=== PATIENT | female | born 1970 | race Two or more races ===

== ENCOUNTER 2016-08-21 08:04 | Outpatient (CLI) | payer MEDICAID ==
[2016-08-21 08:58] LABS: GTT GLUCOSE,FASTING 110 mg/dL (70-100)
== END 2016-08-21 08:05 | disposition home or self-care (01) ==
LOC: LAB 08:04
PROVIDERS: ATTEND Obstetrics & Gynecology
DX: Z86.32 Personal history of gestational diabetes (principal)
CPT/HCPCS: 36415; 82951

== ENCOUNTER 2016-11-11 06:14 | Day surgery (SDC) | payer MEDICAID ==
[2016-11-11 06:37] LABS: HCG UR QUAL NEGATIVE
[2016-11-11] MEDS ORDERED: ceFAZolin 2 GM/50 ML 50 ML IV ONE (06:38)
[2016-11-11] MEDS ORDERED: LACTATED RINGERS 1,000 ML IV ONE ×2 (06:48→09:03)
[2016-11-11] MEDS ORDERED: BUPIVACAINE 0.5% PF 30 ML VIAL SUBQ ONE ×2 (07:37→08:25)
[2016-11-11] MEDS ORDERED: LIDOCAINE-MPF 2% 5 ML VIAL IM ONE (08:15)
[2016-11-11] MEDS ORDERED: ONDANSETRON 4 MG/2 ML VIAL IVP ONE (08:15)
[2016-11-11] MEDS ORDERED: MIDAZOLAM 2 MG/2 ML VIAL IVP ONE (08:15)
[2016-11-11] MEDS ORDERED: ACETAMINOPHEN 1,000 MG/100 ML VIAL IV ONE (08:15)
[2016-11-11] MEDS ORDERED: ROCURONIUM 50 MG/5 ML VIAL IVP ONE (08:15)
[2016-11-11] MEDS ORDERED: DEXAMETHASONE 4 MG/ML VIAL IVP ONE (08:15)
[2016-11-11] MEDS ORDERED: fentaNYL 100 MCG/2 ML VIAL IVP ONE (08:15)
[2016-11-11] MEDS ORDERED: GLYCOPYRROLATE 1 MG/5 ML VIAL IVP ONE (08:15)
[2016-11-11] MEDS ORDERED: KETOROLAC 30 MG/ML VIAL IVP ONE (08:15)
[2016-11-11] MEDS ORDERED: PROPOFOL 200 MG/20 ML VIAL IVP ONE (08:15)
[2016-11-11] MEDS ORDERED: NEOSTIGMINE 1 MG/1 ML 10 ML MDV IVP ONE (08:15)
[2016-11-11] MEDS: fentaNYL 100 MCG/2 ML VIAL ONE ×3 (08:48→09:08)
[2016-11-11] MEDS: HYDROmorphone 1 MG/ML SYRINGE ONE ×2 (09:13→09:20)
--- NOTE | 2016-11-11 09:24 | OPERATIVE REPORT ---
DATE OF SURGERY: 11/11/2016 00:00:00 TIME: 0830. PREOPERATIVE DIAGNOSIS: Umbilical hernia. NAME OF PROCEDURE: Umbilical herniorrhaphy with mesh (Covidien Parietex, lot #[id number], reference #PC [id number], use by date 05/28/2021). POSTOPERATIVE DIAGNOSIS: Umbilical hernia. SURGEON: Mahad Nation MD. ANESTHESIA: Dr. Deluca (general endotracheal), plus 30 mL of 0.5% Marcaine. COMPLICATIONS: None. ESTIMATED BLOOD LOSS: Less than 10 mL. FLUIDS: 900 mL crystalloid. SPECIMEN REMOVED AND CULTURES: None. DETAILS OF PROCEDURE: After informed consent was obtained detailing the risks of infection, bleeding with all of its risks including transfusion and , the patient was brought to the operative suite and placed supine on the operating table. The patient received preoperative antibiotics for prophyla xis against surgical infection. The patient had TEDs and Venodynes placed for prophylaxis against alicia p venous thrombosis. The patient was intubated by Almas Deluca, and Almas Deluca provided anesthesi a care for the entirety of the case. The patient was then prepped and draped in the usual standard ma nner. A time-in was then done that confirmed the patient's identity via her name, medical record numb er, date of , and we discussed the proposed operation, allergies, medications, and that we had t personnel and equipment required to perform the proposed operation. With the consent of everyone i n the room, the operation was allowed to proceed. After anesthetizing the skin using 10 mL of 0.5% Marcaine, a curvilinear incision was made infraumbil ically. Dissection to the hernia sac was completed using Bovie electrocautery. The hernia sac was enc ircled using a Ange. The umbilical stalk was dissected free from the hernia sac using Bovie electroc autery. This hernia sac was resected. The fascia was then defined using Bovie electrocautery. A 8.8 c m piece of Covidien Parietex mesh was obtained, moistened, and placed into the opening. This was then secured to the fascial opening using interrupted 2-0 PDS sutures. This was done circumferentially. T fascia was then closed over the mesh using a 2-0 PDS in a [id number] fashion. In this manner, the hernia was fixed not only with mesh, but also by closing the fascia over it. Meticulous hemostas is was noted. The skin was then sewn down to the fascia to give the patient an "innie" with 3-0 Vicry l suture. The fascia at this point, as well as the skin was injected using 0.5% Marcaine for long-ter m anesthetic control. The skin was then approximated using 4-0 Monocryl in a running subcuticular fas hion. The skin was cleaned of its prep. Mastisol and Steri-Strips were applied. The patient was extub ated and taken to recovery room in good and stable condition having tolerated this procedure well. JOB #: [id number] EXT JOB #:[id number]
[2016-11-11 11:18] VITALS: BP 108/65
== END 2016-11-11 06:15 | disposition home or self-care (01) ==
LOC: SDS 06:14
PROVIDERS: ATTEND Surgery
PROC: 0WUF0JZ Supplement Abdominal Wall with Synthetic Substitute, Open Approach (ICD-10-PCS; principal; 2016-11-11 07:30)
DX: K42.9 Umbilical hernia without obstruction or gangrene (principal)
CPT/HCPCS: 49585; 81025; C1781; J0131; J0690; J1170; J7120

== ENCOUNTER 2016-12-06 06:07 | Outpatient (CLI) | payer MEDICAID ==
[2016-12-06 06:48] LABS: CREATININE 0.6 mg/dL (0.4-1.0)
[2016-12-06] MEDS ORDERED: IOPAMIDOL-300 50 ML VIAL PO ONE (08:10)
[2016-12-06] MEDS ORDERED: IOPAMIDOL-300 100 ML VIAL IVP ONE (08:10)
--- NOTE | 2016-12-06 10:54 | CT Report ---
CT ABDOMEN AND PELVIS WITH CONTRAST: 12/06/2016 CLINICAL INDICATION: Abdominal distention. TECHNIQUE: Axial CT images of the abdomen and pelvis were obtained with 100 mL Isovue-300 intravenou sly as well as oral contrast. No previous CT is available for comparison. In accordance with CT protocol optimization, one or more of the following dose reduction techniques w ere utilized for this exam: automated exposure control, adjustment of mA and/or KV based on patient size, or use of iterative reconstructive technique. FINDINGS: Limited evaluation of the lung bases is unremarkable. Abdomen: The liver, spleen, pancreas, kidneys, and adrenal glands are unremarkable. Cholelithiasis is noted. No biliary dilatation is seen. No bowel dilatation, free gas, or free fluid is present. No abdominal adenopathy is seen. Pelvis: Postoperative changes are seen in the anterior abdominal wall. No pelvic adenopathy or free fluid is present. Osseous structures demonstrate mild degenerative changes. IMPRESSION: POSTOPERATIVE CHANGES IN THE ANTERIOR ABDOMINAL WALL. CHOLELITHIASIS. JOB #: [id number] EXT JOB #:[id number]
== END 2016-12-06 06:08 | disposition home or self-care (01) ==
LOC: DI 06:07
PROVIDERS: ATTEND Surgery
DX: K80.20 Calculus of gallbladder without cholecystitis without obstruction (principal); Z98.890 Other specified postprocedural states
CPT/HCPCS: 36415; 74177; 82565; Q9967

== ENCOUNTER 2018-07-24 04:55 | Emergency (ER) | payer MEDICAID ==
--- NOTE | 2018-07-24 05:12 | ED Physician Documentation ---
PD HPI ABD PAIN - Stated complaint Stated Complaint: ABD PX - Chief complaint Chief Complaint: Abd Pain - History obtained from History obtained from: Patient - History of Present Illness Timing - onset: Enter time (02:00), Today Timing - details: Abrupt onset, Waxing and waning Quality: Pain Location: RUQ, Epigastric Radiation: Other (no radiation) Improved by: Other (no apparent ameliorating factors) Worsened by: Other (no apparent exacerbating factors) Associated symptoms: Nausea, Vomiting. No: Fever Similar symptoms before: No diagnosis, Other (few previous similar episodes, self-limited and thus did not seek medical attention until tonight) Recently seen: Not recently seen Review of Systems Constitutional: reports: Reviewed and negative Cardiac: reports: Reviewed and negative Respiratory: reports: Reviewed and negative GI: reports: Abdominal Pain, Nausea, Vomiting : denies: Dysuria, Frequency Musculoskeletal: denies: Back pain PD PAST MEDICAL HISTORY - Past Medical History Cardiovascular: None Respiratory: None Endocrine/Autoimmune: None GI: None : None HEENT: None Psych: None Derm: None - Past Surgical History Past Surgical History: No - Present Medications Home Medications: Ambulatory Orders Medication Instructions Recorded Confirmed Hydrocodone/Acetaminophen 1 - 2 each PO Q6H PRN #14 tablet 07/24/18 [Hydrocodon-Acetaminophen 5-325] - Allergies Allergies/Adverse Reactions: Allergies Allergy/AdvReac Type Severity Reaction Status Date / Time No Known Drug Allergies Allergy Verified 03/22/16 01:47 - Social History Does the pt smoke?: No Smoking Status: Never smoker Does the pt drink ETOH?: No Does the pt have substance abuse?: No - Immunizations Immunizations are current?: No Immunizations: TDAP >10years/unknown - POLST Patient has POLST: No PD ED PE NORMAL - Vitals Vital signs reviewed: Yes - General General: Alert and oriented X 3, No acute distress, Well developed/nourished - Cardiac Cardiac: RRR, No murmur - Respiratory Respiratory: No respiratory distress, Clear bilaterally - Abdomen Abdomen: Normal bowel sounds, Soft, Non tender, Non distended - Back Back: No CVA TTP - Derm Derm: No rash Results - Vitals Vitals: Vital Signs - 24 hr 07/24/18 07/24/18 04:59 06:12 Temperature 35.7 C L Heart Rate 74 74 Respiratory 18 16 Rate Blood Pressure 116/44 L 108/73 O2 Saturation 100 99 Oxygen O2 Source Room air - Labs Labs: Laboratory Tests 07/24/18 07/24/18 07/24/18 05:00 05:10 05:10 WBC 11.2 H RBC 4.28 Hgb 13.4 Hct 39.2 MCV 91.6 MCH 31.2 H MCHC 34.1 RDW 12.8 Plt Count 316 MPV 7.9 Neut # (Auto) 9.1 H Lymph # (Auto) 1.4 L [place] # (Auto) 0.5 Eos # (Auto) 0.2 Baso # (Auto) 0.1 Absolute Nucleated RBC 0.00 Nucleated RBC % 0.0 Sodium 137 Potassium 4.1 Chloride 99 L Carbon Dioxide 27 Anion Gap 11.0 BUN 17 Creatinine 0.7 Estimated GFR (MDRD) 90 Glucose 187 H Calcium 9.9 Total Bilirubin 0.8 AST 27 ALT 29 Alkaline Phosphatase 103 Total Protein 7.7 Albumin 4.2 Globulin 3.5 Albumin/Globulin Ratio 1.2 Lipase 44 Urine Color YELLOW Urine Clarity CLEAR Urine pH 5.5 Ur Specific [place] >=1.030 H Urine Protein TRACE Urine Glucose (UA) NEGATIVE Urine Ketones NEGATIVE Urine Occult Blood NEGATIVE Urine Nitrite NEGATIVE Urine Bilirubin NEGATIVE Urine Urobilinogen 0.2 (NORMAL) Ur Leukocyte Esterase NEGATIVE Ur Microscopic Review NOT INDICATED Urine Culture Comments NOT INDICATED - Rads (name of study) RUQ US Radiology: Prelim report reviewed, See rad report PD MEDICAL DECISION MAKING - ED course Complexity details: reviewed results, re-evaluated patient, considered differential, d/w patient Departure - Departure Disposition: 01 Home, Self Care Clinical Impression: Biliary colic Condition: Good Instructions: ED Gallstone W Biliary Colic Follow-Up: Mil Barth MD [Provider Admit Priv/Credential] - Prescriptions: Hydrocodone/Acetaminophen [Hydrocodon-Acetaminophen 5-325] 1 - 2 each PO Q6H PRN #14 tablet PRN Reason: pain Discharge Date/Time: 07/24/18 07:59
[2018-07-24] MEDS ORDERED: KETOROLAC 30 MG/ML VIAL IVP STA (05:44)
[2018-07-24 05:51] LABS: BILIRUBIN,URINE NEGATIVE (NEGATIVE); GLUCOSE, URINE (UA) NEGATIVE (NEGATIVE); KETONES,URINE (UA) NEGATIVE (NEGATIVE); LEUKOCYTE ESTERASE, URINE NEGATIVE (NEGATIVE); NITRITE,URINE NEGATIVE (NEGATIVE); OCCULT BLOOD,URINE NEGATIVE (NEGATIVE); PH,URINE 5.5 PH (5.0-7.5); PROTEIN,URINE TRACE mg/dL (NEGATIVE); UROBILINOGEN,URINE 0.2 (NORMAL) E.U./dL (NORMAL)
[2018-07-24 05:51] LABS: BASOPHILS # (AUTO) 0.1 10^3/uL (0.0-0.1); BASOPHILS % (AUTO) 0.7 %; EOSINOPHILS # (AUTO) 0.2 10^3/uL (0.0-0.7); EOSINOPHILS % (AUTO) 1.5 %; HGB - HEMOGLOBIN 13.4 g/dL (12.0-16.0); LYMPHOCYTES # (AUTO) 1.4 10^3/uL (1.5-3.5); LYMPHOCYTES % (AUTO) 12.8 %; MEAN CORPUSCULAR HEMOGLOBIN 31.2 pg (27.0-31.0); MEAN CORPUSCULAR HGB CONC 34.1 g/dL (32.0-36.0); MEAN CORPUSCULAR VOLUME 91.6 fL (81.0-99.0); MEAN PLATELET VOLUME 7.9 fL (7.9-10.8); MONOCYTES # (AUTO) 0.5 10^3/uL (0.0-1.0); MONOCYTES % (AUTO) 4.1 %; NEUTROPHILS # (AUTO) 9.1 10^3/uL (1.5-6.6); NEUTROPHILS % (AUTO) 80.9 %; PLT - PLATELET COUNT 316 10^3/uL (130-450); RED BLOOD COUNT 4.28 10^6/uL (4.20-5.40); RED CELL DISTRIBUTION WIDTH 12.8 % (12.0-15.0); WHITE BLOOD COUNT 11.2 x10^3/uL (4.8-10.8)
[2018-07-24 05:53] LABS: CLARITY,URINE CLEAR (CLEAR)
[2018-07-24 06:05] LABS: ALBUMIN 4.2 g/dL (3.2-5.5); ALBUMIN/GLOBULIN RATIO 1.2 (1.0-2.2); BILIRUBIN,TOTAL 0.8 mg/dL (0.2-1.0); CALCIUM 9.9 mg/dL (8.5-10.3); CREATININE 0.7 mg/dL (0.4-1.0); TOTAL PROTEIN 7.7 g/dL (6.7-8.2)
--- NOTE | 2018-07-24 07:01 | Ultrasound Report ---
Reason: abd. pain Procedure Date: 07/24/2018 Accession Number: [id number] / [id number] Procedure: US - Abdomen Limited CPT Code: FULL RESULT: EXAM: ABDOMEN ULTRASOUND LIMITED, RUQ EXAM DATE: 07/24/2018 06:43 AM. CLINICAL HISTORY: Abd. pain. COMPARISON: ABDOMEN/PELVIS W/ 12/06/2016 7:54 AM. TECHNIQUE: Real-time scanning was performed with static images obtained. FINDINGS: Liver: Mild increased echogenicity. No suspicious focal lesion. Liver measures 12.8 cm in length. Portal Vein: Patent with hepatopetal flow. Gallbladder: Mobile gallstones. Mild gallbladder distention. Absent Cosby's sign. No pericholecystic fluid. No wall thickening. Biliary System: CBD measures 5.0 mm. No intrahepatic or extrahepatic ductal dilatation. Pancreas: Normal appearing head and body. Other portions are obscured by overlying structures. Right Kidney: Transient right-sided pelviectasis. Right kidney measures 10.8 cm in length. Other: None. IMPRESSION: 1. Gallstones without cholecystitis or biliary dilation. 2. There is mild hepatic steatosis. RADIA
[2018-07-24 07:58] VITALS: BP 108/73
== END 2018-07-24 07:59 | disposition home or self-care (01) ==
LOC: ED 04:55
DX: K80.20 Calculus of gallbladder without cholecystitis without obstruction (principal)
CPT/HCPCS: 36415; 76705; 80053; 81001; 81003; 83690; 85025; 87086; 96374; 99283

== ENCOUNTER 2020-04-21 22:52 | Outpatient (CLI) | payer MEDICAID ==
[2020-04-21 23:23] LABS: HGB - HEMOGLOBIN 12.2 g/dL (12.0-16.0); MEAN CORPUSCULAR HEMOGLOBIN 29.4 pg (27.0-31.0); MEAN CORPUSCULAR HGB CONC 31.6 g/dL (32.0-36.0); MEAN PLATELET VOLUME 8.5 fL (7.9-10.8); RED BLOOD COUNT 4.15 10^6/uL (4.20-5.40); WHITE BLOOD COUNT 7.9 x10^3/uL (4.8-10.8)
[2020-04-21 23:45] LABS: % IRON SATURATION 10 % (20-50); ALBUMIN 4.1 g/dL (3.2-5.5); ALBUMIN/GLOBULIN RATIO 1.2 (1.0-2.2); ALKALINE PHOSPHATASE 96 IU/L (42-121); ALT ALANINE AMINOTRANSFERASE 19 IU/L (10-60); AST ASPARTATE AMINOTRANSFERASE 16 IU/L (10-42); BILIRUBIN,TOTAL 0.5 mg/dL (0.2-1.0); BUN - BLOOD UREA NITROGEN 17 mg/dL (6-20); CALCIUM 8.9 mg/dL (8.5-10.3); CARBON DIOXIDE - CO2 26 mmol/L (21-32); CHLORIDE 102 mmol/L (101-111); CHOL/HDL RATIO 5.2 (<4.4); CHOLESTEROL 264 mg/dL; CREATININE 0.7 mg/dL (0.4-1.0); GLUCOSE 116 mg/dL (70-100); HDL CHOLESTEROL 51 mg/dL; IRON 51 ug/dL (28-170); LDL CHOLESTEROL,CALCULATED 157 mg/dL; LDL/HDL RATIO 3.1 (<4.4); TOTAL IRON BINDING CAPACITY 525 ug/dL (250-450); TOTAL PROTEIN 7.5 g/dL (6.7-8.2); TRANSFERRIN 375 mg/dL (192-382); VLDL CHOLESTEROL 56 mg/dL
[2020-04-22 00:23] LABS: FOLLICLE STIMULATING HORMONE 25.15 mIU/mL
[2020-04-22 00:25] LABS: FREE T4 (FREE THYROXINE) 0.87 ng/dL (0.58-1.64)
[2020-04-22 07:16] LABS: HEMOGLOBIN A1c% 6.3 % (4.27-6.07)
[2020-04-24 12:52] LABS: HIV AG/AB 4TH GEN NON-REACTIVE (NON-REACTIVE)
== END 2020-04-21 22:53 | disposition home or self-care (01) ==
LOC: LAB 22:52
PROVIDERS: ATTEND Obstetrics & Gynecology
DX: L64.9 Androgenic alopecia, unspecified (principal); Z13.1 Encounter for screening for diabetes mellitus; Z13.220 Encounter for screening for lipoid disorders; Z13.21 Encounter for screening for nutritional disorder; N95.1 Menopausal and female climacteric states; Z13.29 Encounter for screening for other suspected endocrine disorder; Z11.3 Encounter for screening for infections with a predominantly sexual mode of transmission
CPT/HCPCS: 36415; 80053; 80061; 81599; 82306; 83001; 83036; 83540; 83721; 84439; 84443; 84466; 85027; 86592; 87350; 87389

== ENCOUNTER 2020-04-27 10:08 | Outpatient (CLI) | payer MEDICAID ==
--- NOTE | 2020-04-28 09:53 | Mammography Report ---
BILATERAL DIGITAL SCREENING MAMMOGRAM 3D/2D: 04/27/2020 CLINICAL: Baseline exam. Routine screening. No prior exams were available for comparison. The tissue of both breasts is heterogeneously dense. T his may lower the sensitivity of mammography. No significant masses, calcifications, or other findings are seen in either breast. IMPRESSION: NEGATIVE There is no mammographic evidence of malignancy. A 1 year screening mammogram is recommended. This exam was interpreted at Station ID: [id number]. NOTE: For mammograms, a report in lay terms will be sent to the patient. Approximately 15% of breast malignancies will not be visualized mammographically. In the management of a palpable breast mass, a negative mammogram must not discourage biopsy of a clinically suspicious lesion. Electronically Signed By: Juan Luis brown/obdulia:04/27/2020 13:14:03 ACR BI-RADS Category 1: Negative 3341F PARENCHYMAL PATTERN: (D) - The breast(s) demonstrate(s) heterogeneously dense fibroglandular alicia mitchell. BI-RADS CATEGORY: (1) - 1 RECOMMENDATION: (ANNUAL) - Recommend routine annual screening mammography. [id number] 1 year screening LATERALITY: (B)
== END 2020-04-27 10:09 | disposition home or self-care (01) ==
LOC: DI.N 10:08
PROVIDERS: ATTEND Obstetrics & Gynecology
DX: Z12.31 Encounter for screening mammogram for malignant neoplasm of breast (principal)

== ENCOUNTER 2020-06-02 11:14 | Day surgery (SDC) | payer MEDICAID ==
[2020-06-02] MEDS ORDERED: LACTATED RINGERS 1,000 ML IV ONE ×2 (11:28→13:05)
[2020-06-02 11:47] LABS: HCG UR QUAL NEGATIVE
--- NOTE | 2020-06-02 12:14 | ANESTHESIA ---
Pre-Anesthesia VS, & Labs - Diagnosis screening - Procedure colonoscopy Vital Signs: Temp Pulse Resp BP Pulse Ox 36.8 C 82 16 129/79 96 06/02/20 11:32 06/02/20 11:32 06/02/20 11:32 06/02/20 11:32 06/02/20 11:32 Height: 4 ft 10 in Weight (kg): 71 kg Body Mass Index: 32.7 BMI Classification: Obese - NPO >8 hours - Is Patient ?: No Home Medications and Allergies Allergies/Adverse Reactions: Allergies Allergy/AdvReac Type Severity Reaction Status Date / Time No Known Drug Allergies Allergy Verified 03/22/16 01:47 Anes History & Medical History - Anesthetic History Anesthesia Complications: reports: No previous complications - Medical History Cardiovascular: reports: None Pulmonary: reports: None Gastrointestinal: reports: None Urinary: reports: None Musculoskeletal: reports: None Endocrine/Autoimmune: reports: None Skin: reports: None Smoking Status: Never smoker - Surgical History General: reports: Other Exam General: Alert Dental: WNL Mallampati classification: II Respiratory: Lungs clear Cardiovascular: Regular rate Plan Anesthesia Type: Total IV Consent for Procedure(s) Verified and Reviewed: Yes Code Status: Attempt Resuscitation ASA classification: 2-Mild systemic disease Is this case an emergency?: No
[2020-06-02] MEDS ORDERED: PROPOFOL 200 MG/20 ML VIAL IVP ONE ×3 (12:29→13:09)
[2020-06-02] MEDS ORDERED: LIDOCAINE-MPF 2% 5 ML VIAL ONE (12:29)
[2020-06-02] MEDS ORDERED: GLYCOPYRROLATE 1 MG/5 ML VIAL ONE (12:44)
[2020-06-02 13:30] VITALS: BP 98/83
--- NOTE | 2020-06-02 13:32 | ANESTHESIA POST OP EVALUATION ---
Anesthesia Post Eval - Post Anesthesia Eval Vitals: Last Vital Signs Temp 36.3 C L 06/02/20 13:29 Pulse 78 06/02/20 13:29 Resp 14 06/02/20 13:29 BP 98/83 H 06/02/20 13:29 Pulse Ox 100 06/02/20 13:29 CV Function Including HR & BP: positive: Stable Pain Control: positive: Satisfactory Nausea & Vomiting: positive: Negative Mental Status: positive: Baseline Respiratory Status: Airway Patent Hydration Status: Satisfactory Anesthesia Complications: positive: None
== END 2020-06-02 11:15 | disposition home or self-care (01) ==
LOC: SDS 11:14
PROVIDERS: ATTEND Surgery
DX: Z12.11 Encounter for screening for malignant neoplasm of colon (principal); K57.30 Diverticulosis of large intestine without perforation or abscess without bleeding; E66.9 Obesity, unspecified; Z68.32 Body mass index [BMI] 32.0-32.9, adult; R73.03 Prediabetes
CPT/HCPCS: 45378; 81025; J7120

== ENCOUNTER 2021-03-05 08:15 | Outpatient (CLI) | payer MEDICAID ==
[2021-03-05 09:01] LABS: GTT GLUCOSE,FASTING 134 mg/dL (70-100)
[2021-03-05 09:24] LABS: THYROID STIMULATING HORMONE 7.17 uIU/mL (0.34-5.60)
[2021-03-05 09:29] LABS: % IRON SATURATION 26 % (20-50); FERRITIN 21.7 ng/mL (11.0-306.8); IRON 114 ug/dL (28-170); TOTAL IRON BINDING CAPACITY 445 ug/dL (250-450); TRANSFERRIN 318 mg/dL (192-382)
[2021-03-05 09:54] LABS: FREE T4 (FREE THYROXINE) 0.75 ng/dL (0.58-1.64)
[2021-03-05 14:31] LABS: ESTIMATED AVERAGE GLUCOSE 134 mg/dL (70-100); HEMOGLOBIN A1c% 6.3 % (4.27-6.07)
== END 2021-03-05 08:16 | disposition home or self-care (01) ==
LOC: LAB 08:15
PROVIDERS: ATTEND Obstetrics & Gynecology
DX: N92.0 Excessive and frequent menstruation with regular cycle (principal); Z13.21 Encounter for screening for nutritional disorder; Z83.2 Family history of diseases of the blood and blood-forming organs and certain disorders involving the immune mechanism; L65.9 Nonscarring hair loss, unspecified; Z13.1 Encounter for screening for diabetes mellitus; R73.09 Other abnormal glucose
CPT/HCPCS: 36415; 81599; 82306; 82728; 82950; 82951; 83036; 83540; 84439; 84443; 84466; 85240; 85245; 85246; 85730

== ENCOUNTER 2021-03-13 18:19 | Outpatient (CLI) | payer MEDICAID ==
--- NOTE | 2021-03-14 01:53 | Ultrasound Report ---
PROCEDURE: Pelvic w/Transvaginal INDICATIONS: MENORRHAGIA TECHNIQUE: Real-time scanning was performed of the pelvic organs, with image documentation. Additional endovagi nal scanning was necessary due to incomplete visualization of the adnexal and endometrial structures by transabdominal scanning. COMPARISON: None. FINDINGS: No pathologic free abdominal or pelvic fluid. Uterus: Uterus is slightly elongated in size at 10.7 x 4.1 x 5.1 cm. Homogeneous myometrium without mass. The endometrium measures 11/02/2012 mm in combined thickness. There is question of an ovoid f ocal echogenic polyp within the endometrium measuring 1.2 x 0.5 x 0.8 cm. No vascular stalk was ident ified. Ovaries: Right ovary measures 2.9 x 3.2 x 3.0 cm for a volume of 19.9 cc. It contains a simple 2.3 c m cyst. Left ovary measures 2.1 x 1.5 x 2.5 cm for a volume of 4.2 cc. No dominant follicle. No suspi cious adnexal masses. IMPRESSION: 1. Possible endometrial polyp however no vascular stalk was identified. Consider pelvic MRI for confi rmation. 2. 2.3 cm dominant follicle on the right ovary. Reviewed by: Gail Hoffmann MD on 03/14/2021 1:52 AM PST Approved by: Gail Hoffmann MD on 03/14/2021 1:52 AM PST Station ID: [id number]
== END 2021-03-13 18:20 | disposition home or self-care (01) ==
LOC: DI 18:19
PROVIDERS: ATTEND Obstetrics & Gynecology
DX: N92.0 Excessive and frequent menstruation with regular cycle (principal); R93.89 Abnormal findings on diagnostic imaging of other specified body structures

== ENCOUNTER 2021-05-04 08:49 | Outpatient (CLI) | payer MEDICAID | END 2021-05-04 08:50 | disposition home or self-care (01) | LOC: NS 08:49 | PROVIDERS: ATTEND Obstetrics & Gynecology | DX: Z71.3 Dietary counseling and surveillance (principal); E11.9 Type 2 diabetes mellitus without complications ==

== ENCOUNTER 2021-06-14 08:41 | Emergency (ER) | payer MEDICAID ==
[2021-06-14] MEDS ORDERED: BENZONATATE 100 MG CAPSULE PO STA (08:58)
[2021-06-14 09:05] VITALS: BP 119/70
--- NOTE | 2021-06-14 09:34 | ED Physician Documentation ---
PD HPI URI - Stated complaint Stated Complaint: COUGH - Chief complaint Chief Complaint: Resp - History obtained from History obtained from: Patient - History of Present Illness Pain level max: 0 Pain level now: 0 Associated symptoms: No: Fever, Chills - Additional information Additional information: Patient is a 49-year-old female who presents to the emergency department with a cough x1 week. Mostly dry. Mild rhinorrhea and congestion. Mild sore throat. Has had her Covid vaccinations. Nothing makes it better or worse. No shortness of breath. No fevers. No chills. No recent travel. Review of Systems Constitutional: denies: Fever, Chills Nose: reports: Rhinorrhea / runny nose, Congestion Cardiac: denies: Chest pain / pressure, Palpitations Respiratory: reports: Cough. denies: Dyspnea, Wheezing GI: denies: Nausea, Vomiting PD PAST MEDICAL HISTORY - Past Medical History Cardiovascular: None Respiratory: None Endocrine/Autoimmune: None GI: None : None HEENT: None Psych: None Musculoskeletal: None Derm: None - Past Surgical History Past Surgical History: No General: Other - Present Medications Home Medications: Ambulatory Orders Medication Instructions Recorded Confirmed Benzonatate [Tessalon] 200 mg PO TID PRN #30 cap 06/14/21 - Allergies Allergies/Adverse Reactions: Allergies Allergy/AdvReac Type Severity Reaction Status Date / Time No Known Drug Allergies Allergy Verified 06/14/21 08:46 - Social History Does the pt smoke?: No Smoking Status: Never smoker Does the pt drink ETOH?: No Does the pt have substance abuse?: No - Immunizations Immunizations are current?: No Immunizations: TDAP >10years/unknown - POLST Patient has POLST: No PD ED PE NORMAL - Vitals Vital signs reviewed: Yes - General General: Alert and oriented X 3, No acute distress - HEENT HEENT: PERRL, Ears normal, Moist mucous membranes, Pharynx benign - Neck Neck: Supple, no meningeal sign - Cardiac Cardiac: RRR, Strong equal pulses - Respiratory Respiratory: No respiratory distress, Clear bilaterally - Abdomen Abdomen: Soft, Non tender, Non distended - Derm Derm: Warm and dry - Neuro Neuro: Alert and oriented X 3 - Psych Psych: Normal mood, Normal affect Results - Vitals Vitals: Vital Signs - 24 hr 06/14/21 06/14/21 08:44 09:03 Temperature 36.0 C L 36.8 C Heart Rate 83 78 Respiratory 16 18 Rate Blood Pressure 120/73 119/70 O2 Saturation 96 99 Oxygen O2 Source Room air PD MEDICAL DECISION MAKING - ED course Complexity details: considered differential, d/w patient ED course: Patient is well-appearing, nontoxic. Afebrile. Appears to have a viral upper respiratory infection. No indication for imaging at this time. Covid testing performed. We will continue supportive care and have her follow-up with her doctor for further care. No evidence of pneumonia, sepsis. Patient counseled regarding signs and symptoms for which I believe and urgent re-evaluation would be necessary. Patient with good understanding of and agreement to plan and is comfortable going home at this time This document was made in part using voice recognition software. While efforts are made to proofread this document, sound alike and grammatical errors may occur. Departure - Departure Disposition: 01 Home, Self Care Clinical Impression: Viral URI Condition: Good Instructions: ED URI Viral Follow-Up: your,doctor as needed [Other] Prescriptions: Benzonatate [Tessalon] 200 mg PO TID PRN #30 cap PRN Reason: Cough Comments: Your prescriptions were sent to [facility] in [place]. Please follow-up with your doctor for further care. Return if you worsen.
== END 2021-06-14 09:41 | disposition home or self-care (01) ==
LOC: ED 08:41
DX: J06.9 Acute upper respiratory infection, unspecified (principal); Z20.822 Contact with and (suspected) exposure to COVID-19
CPT/HCPCS: 87635; 99283; A9270

== ENCOUNTER 2021-07-25 15:15 | Outpatient (CLI) | payer MEDICAID ==
[2021-07-25 15:40] LABS: ALBUMIN 3.9 g/dL (3.2-5.5); ALBUMIN/GLOBULIN RATIO 1.3 (1.0-2.2); BILIRUBIN,TOTAL 0.5 mg/dL (0.2-1.0); CALCIUM 9.1 mg/dL (8.5-10.3); CREATININE 0.7 mg/dL (0.4-1.0); POTASSIUM 3.7 mmol/L (3.5-5.0)
[2021-07-25 15:58] LABS: THYROID STIMULATING HORMONE 2.45 uIU/mL (0.34-5.60)
[2021-07-25 16:00] LABS: FREE T4 (FREE THYROXINE) 0.9 ng/dL (0.58-1.64)
[2021-07-25 20:40] LABS: ESTIMATED AVERAGE GLUCOSE 140 mg/dL (70-100); HEMOGLOBIN A1c% 6.5 % (4.27-6.07)
== END 2021-07-25 15:16 | disposition home or self-care (01) ==
LOC: LAB 15:15
PROVIDERS: ATTEND Obstetrics & Gynecology
DX: E11.9 Type 2 diabetes mellitus without complications (principal); R94.6 Abnormal results of thyroid function studies
CPT/HCPCS: 36415; 80053; 83036; 84439; 84443

== ENCOUNTER 2021-08-01 09:21 | Outpatient (CLI) | payer MEDICAID ==
--- NOTE | 2021-08-03 16:22 | Mammography Report ---
BILATERAL DIGITAL SCREENING MAMMOGRAM 3D/2D: 08/01/2021 CLINICAL: Routine screening. Comparison is made to exam dated: 04/27/2020 mammogram - [facility]. The tissue of both breasts is heterogeneously dense. This may lower the sensitivity of mammography. No significant masses, calcifications, or other findings are seen in either breast. There has been no significant interval change. IMPRESSION: NEGATIVE There is no mammographic evidence of malignancy. A 1 year screening mammogram is recommended. This exam was interpreted at Station ID: [id number]. NOTE: For mammograms, a report in lay terms will be sent to the patient. Approximately 15% of breast malignancies will not be visualized mammographically. In the management of a palpable breast mass, a negative mammogram must not discourage biopsy of a clinically suspicious lesion. Electronically Signed By: Steffen Shore M.D., jr/obdulia:08/01/2021 11:35:55 ACR BI-RADS Category 1: Negative 3341F PARENCHYMAL PATTERN: (D) - The breast(s) demonstrate(s) heterogeneously dense fibroglandular alicia mitchell. BI-RADS CATEGORY: (1) - 1 RECOMMENDATION: (ANNUAL) - Recommend routine annual screening mammography. [id number] 1 year screening LATERALITY: (B)
== END 2021-08-01 09:22 | disposition home or self-care (01) ==
LOC: DI.N 09:21
PROVIDERS: ATTEND Obstetrics & Gynecology
DX: Z12.31 Encounter for screening mammogram for malignant neoplasm of breast (principal)

== ENCOUNTER 2021-08-22 21:52 | Outpatient (CLI) | payer MEDICAID ==
--- NOTE | 2021-08-23 15:17 | Ultrasound Report ---
PROCEDURE: Pelvic w/Transvaginal INDICATIONS: MENORRHAGIA, ENDO POLYP TECHNIQUE: Real-time scanning was performed of the pelvic organs, with image documentation. Additional endovagi nal scanning was necessary due to incomplete visualization of the adnexal and endometrial structures by transabdominal scanning. COMPARISON: Pelvic ultrasound 03/13/2021. FINDINGS: Limited scanning through the kidneys shows no hydronephrosis. No pathologic free abdominal or pelvic fluid. Uterus: Uterus is normal in size at 8.6 x 3.9 x 4.7 cm. The endometrium measures 4 mm in combined t hickness. Ovaries: Right ovary measures 3.4 x 1.6 x 2.6 cm, volume 7.5 cc. Echogenic focus measuring approxima tely 7 mm is noted possibly small calcification. Left ovary measures 2.4 x 2.1 x 1.1 cm, volume 2.7 c c. IMPRESSION: Previous possible endometrial polyp is not visualized on current exam. Reviewed by: Charlette Bee MD on 08/23/2021 3:16 PM PDT Approved by: Charlette Bee MD on 08/23/2021 3:16 PM PDT Station ID: [id number]
== END 2021-08-22 21:53 | disposition home or self-care (01) ==
LOC: DI 21:52
PROVIDERS: ATTEND Obstetrics & Gynecology
DX: N92.0 Excessive and frequent menstruation with regular cycle (principal)

== ENCOUNTER 2022-11-22 07:50 | Outpatient (CLI) | payer MEDICAID ==
--- NOTE | 2022-11-25 10:37 | Mammography Report ---
BILATERAL DIGITAL SCREENING MAMMOGRAM 3D/2D: 11/22/2022 CLINICAL: Routine screening. Comparison is made to exams dated: 08/01/2021 mammogram and 04/27/2020 mammogram - [facility]. Both breasts are heterogeneously dense, which may obscure small masses (category c / 51-75% glandular tissue). No significant masses, calcifications, or other findings are seen in either breast. There has been no significant interval change. IMPRESSION: NEGATIVE There is no mammographic evidence of malignancy. A 1 year screening mammogram is recommended. Based on the Tyrer Cuzick model (a risk assessment model) the patients lifetime risk is 8.5% and her 10 year risk is 2.0%. According to the ACR, ACS, and NCCN guidelines, an annual breast MRI exam monse g with mammogram is recommended if the patients lifetime risk is 20% or greater. This exam was interpreted at Station ID: [id number]. NOTE: For mammograms, a report in lay terms will be sent to the patient. Approximately 15% of breast malignancies will not be visualized mammographically. In the management of a palpable breast mass, a negative mammogram must not discourage biopsy of a clinically suspicious lesion. Electronically Signed By: Kirill juarez/obdulia:11/22/2022 10:23:15 letter sent: No_Letter ACR BI-RADS Category 1: Negative 3341F PARENCHYMAL PATTERN: (D) - The breast(s) demonstrate(s) heterogeneously dense fibroglandular alicia mitchell. BI-RADS CATEGORY: (1) - 1 Mammogram [id number] 1 year screening LATERALITY: (B)
== END 2022-11-22 07:51 | disposition home or self-care (01) ==
LOC: DI 07:50
PROVIDERS: ATTEND Nurse Practitioner
DX: Z12.31 Encounter for screening mammogram for malignant neoplasm of breast (principal)

== ENCOUNTER 2023-10-09 10:53 | Outpatient (CLI) | payer MEDICAID ==
[2023-10-09 11:07] LABS: BASOPHILS # (AUTO) 0.1 10^3/uL (0.0-0.1); EOSINOPHILS # (AUTO) 0.2 10^3/uL (0.0-0.7); EOSINOPHILS % (AUTO) 3.5 %; HCT - HEMATOCRIT 42.5 % (37.0-47.0); HGB - HEMOGLOBIN 13.5 g/dL (12.0-16.0); LYMPHOCYTES % (AUTO) 21.3 %; MEAN CORPUSCULAR HEMOGLOBIN 29.8 pg (27.0-31.0); MEAN CORPUSCULAR HGB CONC 31.8 g/dL (32.0-36.0); MEAN CORPUSCULAR VOLUME 93.8 fL (81.0-99.0); MEAN PLATELET VOLUME 8.8 fL (7.9-10.8); MONOCYTES # (AUTO) 0.2 10^3/uL (0.0-1.0); MONOCYTES % (AUTO) 4.9 %; NEUTROPHILS # (AUTO) 3.4 10^3/uL (1.5-6.6); NEUTROPHILS % (AUTO) 69.1 %; PLT - PLATELET COUNT 298 10^3/uL (130-450); RED BLOOD COUNT 4.53 10^6/uL (4.20-5.40); WHITE BLOOD COUNT 4.9 x10^3/uL (4.8-10.8)
[2023-10-09 11:27] LABS: % IRON SATURATION 42 % (20-50); ALBUMIN 4.7 g/dL (3.2-5.5); ALBUMIN/GLOBULIN RATIO 1.6 (1.0-2.2); ALKALINE PHOSPHATASE 109 IU/L (42-121); ALT ALANINE AMINOTRANSFERASE 34 IU/L (10-60); AST ASPARTATE AMINOTRANSFERASE 22 IU/L (10-42); BILIRUBIN,TOTAL 0.6 mg/dL (0.2-1.0); BUN - BLOOD UREA NITROGEN 15 mg/dL (6-20); CALCIUM 10.1 mg/dL (8.5-10.3); CARBON DIOXIDE - CO2 30 mmol/L (21-32); CHLORIDE 103 mmol/L (101-111); CHOL/HDL RATIO 4.6 (<4.4); CHOLESTEROL 273 mg/dL; CREATININE 0.6 mg/dL (0.6-1.3); GFR - MDRD 106 (>89); GLUCOSE 134 mg/dL (74-104); HDL CHOLESTEROL 60 mg/dL; IRON 166 ug/dL (50-212); LDL CHOLESTEROL,CALCULATED 189 mg/dL; LDL/HDL RATIO 3.2 (<4.4); POTASSIUM 4.2 mmol/L (3.5-4.5); SODIUM 137 mmol/L (135-145); TOTAL IRON BINDING CAPACITY 396 ug/dL (250-450); TOTAL PROTEIN 7.7 g/dL (6.4-8.9); TRANSFERRIN 283 mg/dL (203-362); TRIGLYCERIDES 122 mg/dL; VLDL CHOLESTEROL 24 mg/dL
[2023-10-09 11:36] LABS: THYROID STIMULATING HORMONE 3.31 uIU/mL (0.34-5.60)
[2023-10-09 12:37] LABS: ESTIMATED AVERAGE GLUCOSE 140 mg/dL (70-100); HEMOGLOBIN A1c% 6.5 % (4.27-6.07)
== END 2023-10-09 10:54 | disposition home or self-care (01) ==
LOC: LAB 10:53
PROVIDERS: ATTEND Nurse Practitioner Family
DX: E11.9 Type 2 diabetes mellitus without complications (principal); E78.5 Hyperlipidemia, unspecified; E55.9 Vitamin D deficiency, unspecified; E07.9 Disorder of thyroid, unspecified; E61.1 Iron deficiency
CPT/HCPCS: 36415; 80053; 80061; 82306; 83036; 83540; 83721; 84443; 84466; 85025

== ENCOUNTER 2023-10-14 17:16 | Emergency (ER) | payer MEDICAID ==
[2023-10-14 18:04] LABS: BASOPHILS % (AUTO) 0.3 %; EOSINOPHILS % (AUTO) 0.2 %; HGB - HEMOGLOBIN 15.3 g/dL (12.0-16.0); LYMPHOCYTES # (AUTO) 0.3 10^3/uL (1.5-3.5); LYMPHOCYTES % (AUTO) 2.2 %; MEAN CORPUSCULAR HEMOGLOBIN 29.7 pg (27.0-31.0); MEAN CORPUSCULAR HGB CONC 31.2 g/dL (32.0-36.0); MONOCYTES # (AUTO) 0.5 10^3/uL (0.0-1.0); MONOCYTES % (AUTO) 3.5 %; NEUTROPHILS # (AUTO) 12.2 10^3/uL (1.5-6.6); NEUTROPHILS % (AUTO) 93.6 %; PLT - PLATELET COUNT 312 10^3/uL (130-450); RED BLOOD COUNT 5.16 10^6/uL (4.20-5.40); RED CELL DISTRIBUTION WIDTH 12.2 % (12.0-15.0)
[2023-10-14 18:06] LABS: BILIRUBIN,URINE NEGATIVE (NEGATIVE); GLUCOSE, URINE (UA) NEGATIVE (NEGATIVE); KETONES,URINE (UA) 15 mg/dL (NEGATIVE); LEUKOCYTE ESTERASE, URINE NEGATIVE (NEGATIVE); NITRITE,URINE NEGATIVE (NEGATIVE); OCCULT BLOOD,URINE NEGATIVE (NEGATIVE); PROTEIN,URINE 100 mg/dL (NEGATIVE); UROBILINOGEN,URINE 0.2 (NORMAL) E.U./dL (NORMAL)
[2023-10-14 18:10] LABS: CLARITY,URINE CLEAR (CLEAR); HCG UR QUAL NEGATIVE
[2023-10-14 18:16] LABS: BACTERIA,URINE Few /HPF (None Seen); MUCUS,URINE Moderate Strands; RBC,URINE 0-5 /HPF (0-5); SQUAMOUS EPITHELIAL CELL,UR MANY Squamous (<= Few)
[2023-10-14 18:19] LABS: ALBUMIN 5.1 g/dL (3.2-5.5); ALBUMIN/GLOBULIN RATIO 1.4 (1.0-2.2); BILIRUBIN,TOTAL 0.5 mg/dL (0.2-1.0); CALCIUM 10.6 mg/dL (8.5-10.3); CREATININE 0.9 mg/dL (0.6-1.3); POTASSIUM 4.3 mmol/L (3.5-4.5); TOTAL PROTEIN 8.7 g/dL (6.4-8.9)
--- NOTE | 2023-10-14 18:58 | ED Physician Documentation ---
PD HPI ABD PAIN - Stated complaint Stated Complaint: /DIARRHEA - Chief complaint Chief Complaint: Abd Pain - History obtained from History obtained from: Patient - Additional information Additional information: Otherwise healthy 52-year-old woman went out with her family yesterday to avoid all you can eat [place] buffet. They different things in the family is okay but she developed vomiting and diarrhea today with diffuse stomach pain. She denies fevers. PD PAST MEDICAL HISTORY - Past Medical History Past Medical History: Yes Cardiovascular: None Respiratory: None Neuro: None Endocrine/Autoimmune: HyPOthyroidism GI: None P[employer]ING [employer] INST[employer]ER: None : None HEENT: None Psych: None Musculoskeletal: None Derm: None - Past Surgical History Past Surgical History: No General: Other - Present Medications Home Medications: Ambulatory Orders Medication Instructions Recorded Confirmed Levothyroxine Sodium 50 mcg PO DAILY 10/14/23 10/14/23 - Allergies Allergies/Adverse Reactions: Allergies Allergy/AdvReac Type Severity Reaction Status Date / Time No Known Drug Allergies Allergy Verified 10/14/23 17:34 - Social History Does the pt smoke?: No Smoking Status: Never smoker Does the pt drink ETOH?: No Does the pt have substance abuse?: No - Immunizations Immunizations are current?: No Immunizations: TDAP >10years/unknown - POLST Patient has POLST: No PD ED PE NORMAL - Vitals Vital signs reviewed: Yes (Mild resting tachycardia) - General General: Alert and oriented X 3, No acute distress - Cardiac Cardiac: RRR, No murmur - Respiratory Respiratory: No respiratory distress, Clear bilaterally - Abdomen Abdomen: Soft, Non tender - Neuro Neuro: Alert and oriented X 3 Results - Vitals Vitals: Vital Signs - 24 hr 10/14/23 10/14/23 10/14/23 17:34 19:52 20:45 Temperature 36 C L Heart Rate 116 H 96 101 H Respiratory 18 16 16 Rate Blood Pressure 98/65 97/69 97/60 O2 Saturation 99 97 94 Oxygen O2 Source Room air - Labs Labs: Laboratory Tests 10/14/23 10/14/23 10/14/23 17:30 17:59 17:59 WBC 13.0 H RBC 5.16 Hgb 15.3 Hct 49.0 H MCV 95.0 MCH 29.7 MCHC 31.2 L RDW 12.2 Plt Count 312 MPV 9.0 Neut # (Auto) 12.2 H Lymph # (Auto) 0.3 L [place] # (Auto) 0.5 Eos # (Auto) 0.0 Baso # (Auto) 0.0 Absolute Nucleated RBC 0.00 Nucleated RBC % 0.0 Sodium 138 Potassium 4.3 Chloride 107 Carbon Dioxide 22 Anion Gap 9.0 BUN 23 H Creatinine 0.9 Estimated GFR (MDRD) 66 L Glucose 182 H Calcium 10.6 H Total Bilirubin 0.5 AST 50 H ALT 77 H Alkaline Phosphatase 123 H Total Protein 8.7 Albumin 5.1 Globulin 3.6 Albumin/Globulin Ratio 1.4 Lipase 50 Urine Color YELLOW Urine Clarity CLEAR Urine pH 6.0 Ur Specific [place] >=1.030 H Urine Protein 100 H Urine Glucose (UA) NEGATIVE Urine Ketones 15 H Urine Occult Blood NEGATIVE Urine Nitrite NEGATIVE Urine Bilirubin NEGATIVE Urine Urobilinogen 0.2 (NORMAL) Ur Leukocyte Esterase NEGATIVE Urine RBC 0-5 Urine WBC 4-5 Ur Squamous Epith Cells MANY Squamous H Urine Bacteria Few Urine Mucus Moderate Strands Ur Microscopic Review INDICATED Urine Culture Comments NOT INDICATED Urine HCG, Qual NEGATIVE PD Medical Decision Making - ED course ED course: She presents with what sounds like either food poisoning or gastroenteritis after a suspected meal at a [place] [employer] you can eat buffet. She is nontender. Workup demonstrates mild leukocytosis, CMP does show mild hyperglycemia and elevation of the liver enzymes which is new compared to prior. She has a concentrated urine and elevated BUN consistent with dehydration. She was administered IV fluids, Zofran, Toradol, subsequently a small dose of Dilaudid with complete resolution of her symptoms and passed a p.o. challenge. We discussed the above findings and need for follow-up. On reexamination prior to discharge at approximately 9:05 PM she was pain-free and completely nontender including to deep palpation in the right upper and lower quadrants. Departure - Departure Disposition: 01 Home, Self Care Clinical Impression: Gastroenteritis Condition: Good Record reviewed to determine appropriate education?: Yes Instructions: ED Gastroenteritis Non Infec Follow-Up: Caitlin Herman FNP [Credentialed Staff Provider] - Comments: Return tomorrow if not better. You did have some mild elevation of your liver enzymes so would like you to follow-up with your nurse practitioner with plan for recheck of these in a week or 2. Return sooner if worse. Forms: PCP List
[2023-10-14] MEDS: SODIUM CHLORIDE 0.9% 1,000 ML IV STA (19:46)
[2023-10-14] MEDS: LOPERAMIDE 2 MG CAPSULE PO STA (19:46)
[2023-10-14] MEDS: KETOROLAC 15 MG/ML VIAL IVP STA (19:47)
[2023-10-14] MEDS: ONDANSETRON 4 MG/2 ML VIAL IVP STA (19:47)
[2023-10-14] MEDS: HYDROmorphone 1 MG/ML CARPUJECT IVP STA (20:40)
[2023-10-14 20:48] VITALS: BP 97/60; O2SAT 94
[2023-10-14] MEDS: HYDROcod/ACET 5/325 Prepack 4 PO STA (21:12)
[2023-10-14] MEDS: ONDANSETRON ODT 4 MG Prepack 2 TL PRN (21:14)
== END 2023-10-14 21:15 | disposition home or self-care (01) ==
LOC: ED 17:16
DX: K52.9 Noninfective gastroenteritis and colitis, unspecified (principal)
CPT/HCPCS: 36415; 80053; 81001; 81025; 83690; 85025; 96361; 96374; 96375; 99284; A9270; J1170; 81003; 87086

== ENCOUNTER 2023-11-24 14:08 | Outpatient (CLI) | payer MEDICAID | END 2023-11-24 14:09 | disposition home or self-care (01) | LOC: DI 14:08 | PROVIDERS: ATTEND Nurse Practitioner Family | DX: Z53.9 Procedure and treatment not carried out, unspecified reason (principal) ==

== ENCOUNTER 2023-12-20 06:52 | Outpatient (CLI) | payer MEDICAID ==
--- NOTE | 2023-12-21 21:54 | Ultrasound Report ---
PROCEDURE: Soft Tissue Head or Neck INDICATIONS: GLOBAL APHASIA TECHNIQUE: Real-time scanning was performed of the thyroid gland, with image documentation. COMPARISON: None FINDINGS: Right: Thyroid lobe measures 4.2 x 1.6 x 1.2 cm. Left: Thyroid lobe measures 3.9 x 1.5 x 1.1 cm Isthmus: 0.4 cm thick. Echotexture: Homogeneous. No discrete thyroid nodule is seen. No neck soft tissue lymphadenopathy. IMPRESSION: Unremarkable ultrasound examination of thyroid gland and adjacent neck soft tissue. ACR TI-RADS definitions and recommendations: TI-RADS 1 (benign): 0 points. FNA not needed. TI-RADS 2 (not suspicious): 2 points. FNA not needed. TI-RADS 3 (mildly suspicious): 3 points. "FNA if 2.5 cm or larger, follow up if 1.5 cm or larger (at 1, 3, and 5 years). TI-RADS 4 (moderately suspicious): 4-6 points. "FNA if 1.5 cm or larger, follow up if 1 cm or larger (at 1, 2, 3, and 5 years). TI-RADS 5 (highly suspicious): 7 points or more. "FNA if 1 cm or larger, follow up if 0.5 cm or larger (every year for 5 years). Reviewed by: Franck Mcdonnell MD on 12/21/2023 9:53 PM PDT Approved by: Franck Mcdonnell MD on 12/21/2023 9:53 PM PDT Station ID: [id number]
== END 2023-12-20 06:53 | disposition home or self-care (01) ==
LOC: DI 06:52
PROVIDERS: ATTEND Nurse Practitioner
DX: R47.01 Aphasia (principal)